=== PATIENT | female | born 1990 | race Caucasian/White ===

== ENCOUNTER → 2016-08-19 | Outpatient (CLI) | payer OTHER | END | disposition home or self-care (01) | LOC: RAD.S 08-13 09:21 | DX: G35 Multiple sclerosis (principal) ==

== ENCOUNTER 2016-08-20 07:46 | Day surgery (SDC) | payer OTHER ==
[~2016-08-20] VITALS: Ht 167.6 cm; Wt 98.5 kg
== END 2016-08-20 13:35 | disposition home or self-care (01) ==
LOC: SSS 07:46
PROC: 0Q903ZX Drainage of Lumbar Vertebra, Percutaneous Approach, Diagnostic (ICD-10-PCS; principal; 2016-08-20)
DX: G35 Multiple sclerosis (principal); Z88.0 Allergy status to penicillin; Z79.899 Other long term (current) drug therapy

== ENCOUNTER 2016-08-24 10:12 | Emergency (ER) | payer OTHER ==
--- NOTE | 2016-09-01 09:23 | ER ---
ADMIT: 08/24/2016 RM/LOC: [facility] MR#: [id number] [address] [id number] KALYANI SHELL [address] [place] [id number] Emergency Room Report SEX: F AGE: 26 : 1990 CORRECTED: 08/25/2016624 NJV DATE: 08/24/2016 HISTORY OF PRESENT ILLNESS: The patient is a 26-year-old, who had a spinal tap on Tuesday. After Tuesday, she kind of started a heavy schedule, birthday parties and so on. Four days into it, she has had headache on and off, still present. She points to the right eye and left neck. No fever. She drove herself to the emergency room for evaluation. She has a prior Neuro consult with an AV malformation and has had angiogram. PHYSICAL EXAMINATION: GENERAL: She looks very pleasant. Alert and oriented. VITAL SIGNS: 154/88 BP, pulse 80, respirations 16, temp 96.1, and saturation 98%. SOCIAL HISTORY: She drinks alcohol occasionally. MEDICATIONS: She takes: 1. Vitamin D3. 2. Vitamin B12. 3. Topamax. ALLERGIES: SHE IS ALLERGIC TO PENICILLIN. EMERGENCY ROOM COURSE: Physical exam within normal limits. I contacted Dr. Arcos to consult with her regarding a blood patch, but the patient's symptoms are not consistent with post lumbar puncture headache. We did treat her since she has a history of migraine headaches with Nubain, IV fluids, and an antiemetic in the form of Zofran. Her aunt was in the room, and she mentioned that since she was a child, she had issues with headaches after exposure to the sun or mild dehydration, so she was discharged home with a note, advised to follow up with PCP, rest, hydration. CLINICAL IMPRESSION: Acute headache. HARSHA Whitaker / Sawyer Barry MD / [email or web address] JOB #: [id number] CC: Sawyer Barry MD, Attending Physician Fiona Conklin APRN, AUXILIARY EQUIPMENT OPERATOR-C, Family Physician CORRECTED: 08/25/2016 0625 NJV
== END 2016-08-24 12:45 | disposition home or self-care (01) ==
LOC: ER 10:12
DX: R51 Headache (principal); Z79.899 Other long term (current) drug therapy; Z88.0 Allergy status to penicillin